=== PATIENT | male | born 2005 | race Caucasian/White ===

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

== ENCOUNTER 2025-08-26 08:00 | Outpatient (RCR) | payer OTHER, SELFPAY ==
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
--- NOTE | 2025-08-26 09:00 | BH.SGPN.GN ---
Behaviors/Verbalizations/Mental Status: [] Pt alert and oriented, Casually dressed and groomed. Eye contact good. Motor activity appropriate. Speech within normal limits. Affect congruent, mood calm. Thoughts linear, logical, no signs of hallucinations or delusions. Reviewed pt?s symptom tracker today, denies suicidal ideation, plan, and intent.08/26/25 Client Response/Progress/Benefit: []Pt was an active participant in group discussions. Attentive. Per patients daily symptom tracker, pt indicates a 3/5 for depression and a 2/5 for anxiety, with 5 being severe. This was pt's first group session. He shared his mental health positives as working a music festival over the weekend, and getting some chores done around the house. Pt stated that his stressor was waking up the past few days feeling sad, stating that he is unsure why. Pt stated that he typically feels sad in the morning, but will feel better as the day progresses. Pt was supportive and attentive to others in the group. Pt seemed to benefit from support from peers. Will continue IOP tx to promote healthy coping mechanisms, decrease negative thinking patterns, and prevent decompensation.
--- NOTE | 2025-08-26 09:00 | BH.COMM_ITS ---
Communication Note Communication with Client Communication Note: Met with pt and completed initial paperwork and suicide risk assessment. Low risk. No significant changes since pre-admission screening. Reviewed with Dr. Light with plan to admit to [facility] with dx of F33.3
--- NOTE | 2025-08-26 09:00 | BH.MTP_ITS ---
Master Treatment Plan Patient Information Program Physician:: Dr. Light Primary Therapist:: Hiram Fuentes Psychiatric Diagnoses Psychiatric Diagnoses:: Diagnosis #1:: Major Depressive Disorder, single, with psychotic features Diagnosis #2:: ADHD Estimated LOS Estimated LOS (in weeks):: 6 Problem/Goal #1 Problem/Goal #1 Stated Goal:: Client will reduce depressive symptoms, worthlessness, lack of concentration, passive thoughts of , and low motivation/energy AEB by reduced scores on outcome measurements as well as slef-report Description of Barriers: busy schedule (working 2 jobs), limited insight and awareness of mental health struggles, minimizes symptoms, limited motivation Functional Impact: Pt had his first psychotic episode two months ago which required hospitalization. Prior to admission pt and family noted disorganized thoughts, hallucinations, and sabianism pre-occupation. It would seem as if psychosis was decreasing he entered a depressive episode in which he reports intrusive suicidal thoughts. Goal Relevant Strengths/Supports: Supportive friends and roommates. Objectives Objective #1: Stated Objective: Client will identify 2-3 cognitive distortions and mistaken beliefs that lead to depressive symptoms and learn 2-3 ways to manage these thoughts to reduce symptoms. Interventions: Through individual and group counseling will provide education on the most cognitive distortions and mistaken beliefs. Will also teach client the connection between thoughts, emotions, and feelings. Therapist will use CBT and DBT techniques to help client gain awareness of thinking errors and learn how to more effectively handle negative thoughts. Discharge Criteria: Will be able to identify 2-3 commonly used cognitive distortions and mistaken beliefs as well as strategies to challenge/reframe. Target Date: 10/13/25 Review Date: 09/23/25 Objective #2: Stated Objective: Client will work with therapist to develop a concrete ?crisis plan? or emotional dysregulation plan to implement during depressive episodes or acute events which includes emergency telephone numbers, internal/external coping strategies for SI/overwhelming emotions, lists of supports, warning signs, positive aspects of life, and motivations Interventions: Through individual and group interventions with provide education on importance of a crisis plan? or emotional dysregulation plan which as well as strategies to implement in these plans. Discharge Criteria: Completed emotion regulation plan. Target Date: 10/13/25 Review Date: 09/23/25 Problem/Goal #2 Problem/Goal #2 Stated Goal:: Improve attention, impulse control, and emotional regulation to enhance functioning in daily activities and group participation. Description of Barriers: busy schedule (working 2 jobs), limited insight and awareness of mental health struggles, minimizes symptoms, limited motivation Functional Impact: Pt had his first psychotic episode two months ago which required hospitalization. Prior to admission pt and family noted disorganized thoughts, hallucinations, and sabianism pre-occupation. It would seem as if psychosis was decreasing he entered a depressive episode in which he reports intrusive suicidal thoughts. Goal Relevant Strengths/Supports: Friends and roommates are primary support. Objectives Objective #1: Stated Objective: Patient will identify at least three evidence-based coping strategies (e.g., mindfulness, structured scheduling, use of reminders) to manage inattention and impulsivity within 2 weeks. Interventions: Through individual and group intervention will provide CBT techniques targeting cognitive distortions and impulsivity, skills training for organization and time management, and mindfulness-based strategies for emotional regulation Discharge Criteria: Will be able to identify 3 coping strategies that help to improve emotional regulation and daily functioning. Target Date: 10/13/25 Review Date: 09/23/25
--- NOTE | 2025-08-26 10:15 | BH.SGPN.GN ---
Behaviors/Verbalizations/Mental Status: [] Client alert and oriented, casually dressed and groomed. Eye contact good. Motor activity appropriate. Speech within normal limits. Affect congruent, mood euthymic and anxious. Thoughts linear, logical, no signs of hallucinations or delusions. Client Response/Progress/Benefit: [] Client first day in IOP program and responded well to session AEB taking notes throughout and listening attentively to others. Client was attentive throughout group activity identifying famous individuals and how they overcame failure to be successful. Client helped group identify how fear of failure can impact mental health and relationships. Group identified it leads to self-sabotage, not trying, avoidance, and isolation. Client participated in experiential activity, working with group members to problem solve. Appeared to benefit from increased knowledge of fear of failure. Will continue IOP tx to improve self-confidence, reduce distorted thinking patterns, and reduce avoidance. Narrative Note: []
--- NOTE | 2025-08-26 11:15 | BH.SGPN.GN ---
Behaviors/Verbalizations/Mental Status: [] Client alert and oriented, casually dressed and groomed. Eye contact good. Motor activity appropriate. Speech within normal limits. Affect congruent, mood euthymic and anxious. Thoughts linear, logical, no signs of hallucinations or delusions. Client Response/Progress/Benefit: [] Client's first day in program and responded well to session, engaged in the experiential activity and attentive throughout group processing. Client completed fear of failure worksheet and was able to identify thoughts and behaviors that reinforce personal fear of failure including guilt and bad examples. Client participated in small group discussion regarding strategies to overcome fear of failure. Identified wanting to work on looking at good examples. Appeared to benefit from increased knowledge of strategies to combat fear of failure and gaining self-awareness. Client will continue IOP tx to increase overall functioning and increase emotional regulation. Narrative Note: []
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
--- NOTE | 2025-08-28 07:48 | BH.DR.ITP ---
Initial Treatment Plan Patient Information Visit Information: ADMISSION DATE: 08/26/2025 EXPECTED LOS: 4-6 weeks Diagnoses:: MDD, severe, with psychosis; ADHD Problems/Symptoms Problem #1:: MDD Symptom:: Low mood, poor concentration, history of hallucinations, poor sleep Problem #2:: ADHD Symptom:: Poor concentration, loss of focus, poor motivation
--- NOTE | 2025-08-28 08:40 | BH.NA ---
Physical Data Vital Signs Pulse Rate: 57 Blood Pressure: 133/69 Height/Weight Height: 1.68 m Weight:: 68.039 kg Weight in Pounds: 150.0 lbs Functional Assessment Sleep Pattern Describe any problems with sleeping: Client states he sleeps about 8 hours per night. Sensory/Communication Assess Communication Problems Do you have difficulty understanding what people are saying?: No Medical Problems/History Pain Assessment Do you have acute or chronic pain?: No Surgical History Surgical History Have you had any surgeries? If so, list type and date:: No Substance Abuse Substance Abuse Please describe substance abuse in the last 30 days:: Client states he has used alcohol in the past but denies current use. Client has been vaping and smoking cigarettes daily for about 2 years. Client states he uses marijuana about once per week. Client usually drinks coffee daily and drinks Red Bull energy drinks about 2 times per week. Mental Status Summary Mental Status Significant Findings/Observations on Appearance and Mood:: Client is alert and oriented x 4. Client is casually groomed with good hygiene. Client is cooperative with assessment. Client makes good eye contact. Client's voice has normal rate and volume. Client has appropriate affect. Client makes logical associations and has normal processing. Client denies delusions/hallucinations currently. Client denies SI. Suicide Assessment Suicidal Ideation Are you currently or have you been suicidal in the past?: Yes Suicidal Intentional Rating Scale (SIRS): Suicidal thoughts (past) Physician Notification Past Psychiatric History MH Treatment Hx Past Psychiatric Medications:: None until now Age of first mental health symptoms: Client states he has been depressed most of my life and did have a past suicide attempt by overdose at age 16. Describe (age, circumstance, etc) any past hospitalizations: 2020 at [facility] after a SA by overdose, and [facility]25 for psychosis - auditory hallucinations telling him to kill himself Current providers for mental health treatment (counselor, psychiatrist, case resolution specialist, etc.): [facility] Psych[facility] and [facility] at [facility] Fall Risk Assessment Age Age: Less than 60 Mental Status Mental Status: Willing & able to ask for assistance when needed Physical Status Physical Status: No problems Impairments Impairments: None Elimination Elimination: Continent AND independent Gait or Balance Gait or Balance: Walks independently Hx of Falls History of falls in the past 6 months: No known history Medications/Substances Psychotropics:: Antidepressants and Antipsychotics Medications/substances used within the past 24 hours or ordered to administer: 1-2 of the medications/substances listed above Total Score Total Points:: 1 RN Summary of Impressions Impressions Recommendations Impressions: Psychiatric Issues: major depressive disorder with history of psychosis Level of Care How do the client's current symptoms and functional deficits support need for this level of care?: Client was referred to IOP after a hospitalization in June 2025 at [facility] for psychosis after feeling depressed for a few months before that. Client states he was not sleeping for several days and began hearing voices telling him to kill himself. Client started Abilify and Lexapro while in the hospital and states his mood has much improved and he denies hallucinations at this time. Client also denies SI. IOP will promote gains and prevent further decompensation while providing social support and skills training. Nutritional Screen Height/Weight Height: 1.68 m Weight:: 68.039 kg Weight in Pounds: 150.0 lbs Nutrition Screening Normal Weight: 63.503 kg Normal/Usual Weight in Pounds: 140.0 lbs Have you lost weight without trying: No (states he has recently gained weight due to starting medications two months ago) Have you been eating poorly because of a decreased appetite: No Recently been on tube feeds, TPN, or have any nutritional access device in place: No Have any large open wounds or wounds that are not healing: No Calculated Weight Change: [id number] Change in weight Score: 1 MST Screening Tool Score: 1
[2025-08-28 09:34] VITALS: BP 133/69; PULSE 57
--- NOTE | 2025-08-28 10:10 | BH.SGPN.GN ---
Behaviors/Verbalizations/Mental Status: [] Pt alert and oriented, casually dressed and groomed. Eye contact fair. Motor activity appropriate. Speech within normal limits. Affect full , mood euthymic, Thoughts linear, logical, no signs of hallucinations or delusions. Client Response/Progress/Benefit: [] Pt participated in group discussion. Group worked together to identify benefits of healthy relationships which included improves mental health, encouragement, motivation, accountability, validation, connection, someone to share experiences with, and support during challenges. Group identified factors that lead to unhealthy relationships which included trauma, lack of communication, and substance use. Benefited from increased insight and awareness of benefits of healthy relationships and factors that contribute to unhealthy relationships. Will continue in IOP to increase consistent use of healthy coping skills, challenge negative thoughts, and prevent decompensation. Narrative Note: []
--- NOTE | 2025-08-28 11:10 | BH.SGPN.GN ---
Behaviors/Verbalizations/Mental Status: [] Pt alert and oriented, casually dressed and groomed. Eye contact fair. Motor activity appropriate. Speech within normal limits. Affect full , mood euthymic, Thoughts linear, logical, no signs of hallucinations or delusions. Client Response/Progress/Benefit: [] Client responded well to session, engaged and taking notes throughout. Worked with group to connect components of the experiential activity with characteristics of healthy and unhealthy relationships. Attentive during psychoeducation about characteristics of healthy, unhealthy, and abusive relationships. Group member picked unhealthy and healthy attributes of an important relationship in their lives. Client reported they would like to continue to improve honesty, trust, and control in their chosen relationship. Appeared to benefit from identifying current healthy relationship attributes and an area client wants to work on to build healthier relationships. Client to continue IOP to increase healthy coping skills, stabilize mood, and prevent decompensation. Narrative Note: []
--- NOTE | 2025-09-01 10:15 | BH.SGPN.GN ---
Behaviors/Verbalizations/Mental Status: []Pt alert and oriented, neatly dressed and groomed. Eye contact good. Motor activity appropriate. Speech within normal limits. Affect flat, mood apathetic. Thoughts linear, logical, no signs of hallucinations or delusions. Client Response/Progress/Benefit: [] Pt was mostly passive, appeared to be paying attention, but quiet. Attentive and contributed to discussion as group worked on defining self-forgiveness and identifying mental health benefit. Identified benefits as: reduce guilt/shame, increase self-confidence, decrease negative self-talk, healthier relationships, ect. ?Worked in small groups to identify factors that can make self-forgiveness difficult. Pt identified a personal barrier to self-forgiveness. Benefited from increased education on self-forgiveness, benefits, and what effects it. Pt will continue IOP tx to prevent decompensation, improve daily functioning, and gain healthy coping skills. ? Narrative Note: []
--- NOTE | 2025-09-01 11:15 | BH.SGPN.GN ---
Behaviors/Verbalizations/Mental Status: [] Client alert and oriented, casually dressed and groomed. Eye contact good. Motor activity appropriate. Speech within normal limits. Affect congruent, mood content. Thoughts linear, logical, no signs of hallucinations or delusions. Client Response/Progress/Benefit: [] Pt engaged in session AEB client listening attentively to peers and providing input. Attentive during psychoeducation on the 4 R?s of Self-Forgiveness (Responsibility, Remorse, Jew, Renewal). Contributed to discussion as group worked on identifying strategies for improving ability to practice self-forgiveness.. Engaged in self-forgiveness activity and benefited from increased education on self-forgiveness building skills. Pt will continue IOP tx to improve mood stability, increase self-compassion, and prevent decompensation. Narrative Note: []
== END 2025-09-06 23:59 ==
LOC: BHIOP 08:00
PROVIDERS: PCP Pediatrics; Referring Provider Student in an Organized Health Care Education/Training Program; Visit Provider Student in an Organized Health Care Education/Training Program
DX: F32.9 Major depressive disorder, single episode, unspecified (principal); F90.9 Attention-deficit hyperactivity disorder, unspecified type
CPT/HCPCS: S9480; 90853